=== PATIENT | female | born 1960 | race African-American/Black ===

== ENCOUNTER 2017-02-01 14:21 | Observation (INO) | payer OTHER ==
[2017-02-01 15:09] LABS: Hematocrit 37.3 % (36.0-47.0); Mean Platelet Volume 8.7 fL (7.4-10.4); Red Blood Cell (RBC) Count 5.01 mill/uL (4.20-5.40); White Blood Cell (WBC) Count 6.2 thou/uL (4.8-10.8)
[2017-02-01 15:24] LABS: ALT (SGPT) 47 U/L (8-55); AST (SGOT) 27 U/L (5-34); Alkaline Phosphatase 79 U/L (40-150); Anion Gap 8 mmol/L (10-20); BUN (Urea Nitrogen) 22 mg/dL (9.8-20.1); Bilirubin, Total 0.5 mg/dL (0.2-1.2); CK (CPK) 138 U/L (29-168); Calc. Creatinine Clearance 0 mL/min (70-130); Calcium 9.3 mg/dL (7.8-10.44); Carbon Dioxide 30 mmol/L (22-29); Chloride 103 mmol/L (98-107); Estimated GFR-MDRD 81; Globulin 3.4 g/dL (2.4-3.5); Protein, Total 7.4 g/dL (6.0-8.3)
[2017-02-01 15:31] LABS: #Lymphocytes 1.3 thou/uL (1.20-3.40); #Monocytes 0.3 thou/uL (0.11-0.59); #Neutrophils 4.6 thou/uL (1.40-6.50); %Basophils 0.2 % (0.0-1.0); %Eosinophils 0.4 % (0.0-10.0); %Lymphocytes 21.3 % (21.0-51.0); Anisocytosis SLIGHT = 6-15 cells (100X) (0-5/hpf); Hypochromia SLIGHT = 6-15 cells (100X) (0-5/hpf); Microcytosis SLIGHT = 6-15 cells (100X) (0-5/hpf); Ovalocytes SLIGHT = 2-5 cells (100X) (0-1/hpf)
[2017-02-01 15:35] LABS: Troponin I Less than 0.010 ng/mL (< 0.028)
--- NOTE | 2017-02-01 17:07 | RAD ---
PORTABLE CHEST 1 VIEW: Date: 02/01/17 Time: 1534 hours HISTORY: Mid sternal chest pain. FINDINGS/IMPRESSION: The heart size is normal. The lungs are well expanded without confluent areas of consolidation, pneu mothorax, or pleural effusions. There is mild prominence of the interstitial markings, particularly in the upper lung robbins. There are degenerative changes in the spine. POS: [facility]
[2017-02-01] MEDS ORDERED: Regadenoson 0.4 MG/5 ML SYRINGE ONE (17:12)
[2017-02-01] MEDS ORDERED: Nitroglycerin 2% Ointment 1 INCH/1 GM Packet ONE (17:57)
[2017-02-01 19:06] LABS: Troponin I Less than 0.010 ng/mL (< 0.028)
[2017-02-01] MEDS ORDERED: Acetaminophen 325 MG TAB PO PRN ×2 (20:24→22:21)
[2017-02-01] MEDS ORDERED: HYDROcodone/Acetaminophen 5/325 mg Tablet PO PRN ×2 (20:24)
[2017-02-01] MEDS ORDERED: Ondansetron HCl/PF 4 MG/2 ML Vial IVP PRN (20:24)
[2017-02-01] MEDS ORDERED: Ondansetron ODT 4 MG TAB SL PRN (20:24)
[2017-02-01 20:46] VITALS: BMI 27.1
[2017-02-01] MEDS ORDERED: FLU VACC QS2017-18 36 mo. & older 0.5 ML SYRINGE IM ONE (21:00)
[2017-02-01 21:05] LABS: Troponin I Less than 0.010 ng/mL (< 0.028)
[2017-02-01] MEDS ORDERED: Nitroglycerin 0.4 MG TAB (25 Tab Bottle) PO PRN (22:21)
[2017-02-01] MEDS ORDERED: diphenhydrAMINE 25 MG in Sodium Chloride 0.9% 50 ML IVPB PRN (22:42)
[2017-02-01] MEDS ORDERED: diphenhydrAMINE 50 MG/ML VIAL IVP PRN (22:53)
[2017-02-01] MEDS: Sodium Chloride 0.9% 1,000 ML IV SCH (23:51)
[2017-02-02] MEDS ORDERED: Temazepam 15 MG CAP PO PRN (00:33)
[2017-02-02] MEDS ORDERED: Melatonin 3 MG TAB PO PRN (00:33)
[2017-02-02] MEDS ORDERED: Nitroglycerin 2% Ointment 1 INCH/1 GM Packet TOP SCH (02:00)
[2017-02-02 04:44] LABS: #Eosinphils 0.1 thou/uL (0.0-0.7); #Lymphocytes 2.4 thou/uL (1.20-3.40); #Monocytes 0.5 thou/uL (0.11-0.59); #Neutrophils 3.3 thou/uL (1.40-6.50); %Basophils 0.5 % (0.0-1.0); %Eosinophils 1.6 % (0.0-10.0); %Lymphocytes 38.2 % (21.0-51.0); %Monocytes 7.2 % (0.0-10.0); Hematocrit 34.1 % (36.0-47.0); Mean Platelet Volume 8.3 fL (7.4-10.4); Red Blood Cell (RBC) Count 4.67 mill/uL (4.20-5.40); White Blood Cell (WBC) Count 6.3 thou/uL (4.8-10.8)
[2017-02-02 05:07] LABS: Anion Gap 8 mmol/L (10-20); BUN (Urea Nitrogen) 19 mg/dL (9.8-20.1); Calc. Creatinine Clearance 95 mL/min (70-130); Calcium 8.8 mg/dL (7.8-10.44); Carbon Dioxide 28 mmol/L (22-29); Chloride 106 mmol/L (98-107); Cholesterol 204 mg/dl (< 200 Desired); Estimated GFR-MDRD Greater than 90; LDL Cholesterol, Calculated 120 mg/dL; Magnesium 1.8 mg/dL (1.6-2.6); Phosphorus 2.9 mg/dL (2.3-4.7)
--- NOTE | 2017-02-02 06:53 | HP ---
DATE OF ADMISSION: 02/01/2017 ATTENDING: Gabriella Randhawa DO RESIDENT: DO Dr. Prince Michel's H and P reviewed and case discussed. Pertinent portions of the history and physical we re repeated by myself. I agree with the assessment and plan with the following addendum. Ms. Bhat is a pleasant 56-year-old -[place] female with past medical history of sarcoidosi s on chronic steroids, glaucoma, and hypertension, who presented to the ER with typical chest pain, concerning for exertional angina. During my examination, her chest pain had completely resolved, al though she did complain of a headache from her nitro-patch. This was mildly improved with Tylenol g iven her the resolution of her pain. We will discontinue the nitro-patch. She has had cardiac enzy mes that have been negative x3 and her EKG is unremarkable. Given her history of sarcoidosis with c hronic steroid use as well as hypertension and her concerning current pain, we will obtain a stress test for her in the morning to rule out acute coronary syndrome.
[2017-02-02] MEDS ORDERED: Aspirin 325 MG TAB PO SCH (08:00)
[2017-02-02] MEDS ORDERED: predniSONE 20 MG TAB PO SCH (08:00)
[2017-02-02] MEDS ORDERED: Hydrochlorothiazide 25 MG TAB PO SCH (09:00)
[2017-02-02] MEDS ORDERED: Timolol 0.5% Ophth Soln 5 ml Bottle R EYE SCH (09:00)
[2017-02-02] MEDS ORDERED: Latanoprost 0.005% Ophth Soln 2.5 ml Bottle R EYE SCH (09:00)
[2017-02-02] MEDS: Sodium Chloride 0.9% 1,000 ML IV SCH (09:11)
--- NOTE | 2017-02-02 09:32 | HP-2 ---
DATE OF ADMISSION: 02/01/2017 DATE OF SERVICE: 02/01/2017 LOCATION: [place], [place]. COSIGNER: Dr. Gabriella Randhawa. CODE STATUS: FULL. PRIMARY CARE PHYSICIAN: [facility]. ATTENDING PHYSICIAN: Dr. Gabriella Randhawa. RESIDENT PHYSICIAN: Dr. Duy Morrison. CHIEF COMPLAINT: Exertional chest pain with radiation to the left shoulder. HISTORY OF PRESENT ILLNESS: A 56-year-old female with past medical history of anemia, hypertension, and sarcoidosis, who presents to ED with a 2-day history of exertional chest pain, which she first noticed at work while not active. Patient reports the pain was persistent while at work, but resolv ed after rest. Patient experienced another episode of pressure-like discomfort after walking to [employer] this morning. She denies fever, chills, sweats, diaphoresis, nausea, vomiting, diarrhea, constipa tion, syncopal episodes. Denied increased shortness of breath outside of her baseline. Denied swel ling. Patient reported relief of symptoms with rest and nitro. ER: In the ER, the patient was given 324 mg of aspirin and nitropatch with relief of symptoms. PAST MEDICAL HISTORY: Anemia, sarcoidosis, and hypertension. PAST SURGICAL HISTORY: Transvaginal hysterectomy. ALLERGIES: PENICILLIN. MEDICATIONS: 1. Hydrochlorothiazide 50 mg every day. 2. Prednisone 20 mg daily. 3. Sertraline. 4. Timolol drops. FAMILY HISTORY: Maternal and paternal hypertension. SOCIAL HISTORY: Patient is a nonsmoker, nondrinker. Denies drug use. 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 ILL CONTACTS: The patient denies ill contacts. REVIEW OF SYSTEMS: General: The patient denies fever, chills, and night sweats. ENT: The patient denies nasal congestion, rhinorrhea, and sore throat. Respiratory: The patient denies cough, bina estion, shortness of breath. Cardiovascular: The patient complains of chest pain. Denies palpitat ions or edema. Gastrointestinal: The patient denies nausea, vomiting, diarrhea, constipation. Mus culoskeletal: The patient denies swelling. Neurologic: The patient denies syncopal episodes. PHYSICAL EXAMINATION: VITAL SIGNS: Blood pressure 149/85, pulse 66, respirations 16 breaths per minute, T-max 98.4, pulse ox 99% on room air, current weight 72 kilograms. GENERAL: The patient is alert and oriented, no acute distress, well-developed, well-nourished, and appropriately interactive. EYES: Pupils are equal, round, reactive to light. Extraocular muscles are intact. Conjunctiva wit hin normal limits. CARDIOVASCULAR: Regular rate and rhythm. No murmurs, rubs or gallops. Radial pulses 2+, pedal pul ses 2+. No hepatojugular reflux. No JVD. RESPIRATORY: Normal effort. Lungs clear to auscultation bilaterally. No retractions, no paradoxic al breathing. SKIN: Warm and dry. No cyanosis. No lesions. ABDOMEN: Soft, nontender, normoactive bowel sounds in all 4 quadrants. No masses or distention. EXTREMITIES: No clubbing, no cyanosis, no edema. MUSCULOSKELETAL: Structures within normal limits. Tone within normal limits. NEUROLOGIC: No focal deficits. GCS 15. LABORATORY DATA AND IMAGING: White blood cell count 6.2, hemoglobin 11.7, hematocrit 37.3, platelet s 277. Sodium 137, potassium 4.2, chloride 103, bicarbonate 30, BUN 22, creatinine 0.88, glucose 11 9, calcium 9.3, total protein 7.4, albumin 4.0, AST 27, ALT 47, alkaline phosphatase 79, total bilir ubin 0.4, CK 138, CK-MB 2, troponin less than 0.010. Lipase 17. EKG showed normal sinus rhythm wit h no ST or T-wave changes. Chest x-ray showed no acute cardiothoracic process. Lungs were hyperinf lated. ASSESSMENT AND PLAN: 1. Typical chest pain: We will admit for observation to telemetry. Repeat troponins x3, 325 mg of aspirin daily and p.r.n. nitro will be provided. Check a TSH, magnesium, phosphorus, and fasting l ipids in the morning. We will order cardiac echo. We will order stress test. Pending negative tro ponins. We will repeat EKG in the morning. The patient will be placed on normal saline at 100 mL p er hour and will be made n.p.o. with sips of water at midnight. 2. Hypertension. Resume home medications. 3. Sarcoidosis. We will resume home medications. Maintain oxygen saturation of 90%. 4. Anxiety. We will resume home medications. 5. Glaucoma. We will resume home medications. DISPOSITION AND LENGTH OF STAY: Patient is stable. Anticipated length of stay less than or equal t o 2 days. Symptomatic medication will be provided. History and physical exam as well as management was discussed with Dr. Gabriella Randhawa, who agrees wit h the assessment and plan unless otherwise noted in her addendum.
--- NOTE | 2017-02-02 10:14 | PDOC.FM ---
- Subjective Subjective: Patient reports complete resolution of her chest pain. She has had no further episodes of chest pain since last night. Denies any SOB, diaphoresis, nausea, vomiting, fever. - Objective MAR Reviewed: Yes Vital Signs & Weight: Vital Signs (12 hours) Temp Pulse Resp BP Pulse Ox 02/02/17 08:00 98.6 F 74 16 02/02/17 07:48 98.6 F 74 16 123/62 97 02/01/17 23:23 97.7 F 72 20 123/63 95 Weight Weight 71.713 kg Result Diagrams: 02/02/17 04:28 02/02/17 04:28 <Jenifer Monae - Last Filed: 02/02/17 10:12> - Objective Vital Signs & Weight: Vital Signs (12 hours) Temp Pulse Resp BP Pulse Ox 02/02/17 10:38 97.9 F 70 24 H 131/74 98 02/02/17 08:00 98.6 F 74 16 02/02/17 07:48 98.6 F 74 16 123/62 97 Weight Weight 71.713 kg Result Diagrams: 02/02/17 04:28 02/02/17 04:28 <Abeba Levin - Last Filed: 02/02/17 12:58> Phys Exam - Physical Examination Constitutional: NAD HEENT: moist MMs Respiratory: no wheezing, no rales, no rhonchi, clear to auscultation bilateral Cardiovascular: RRR, no significant murmur, no rub, gallop Gastrointestinal: soft, non-tender, no distention, positive bowel sounds Musculoskeletal: no edema, pulses present Neurological: non-focal, moves all 4 limbs Psychiatric: normal affect, A&O x 3 <Jenifer Monae - Last Filed: 02/02/17 10:12> Dx/Plan (1) Atypical chest pain Code(s): R07.89 - OTHER CHEST PAIN Status: Acute Plan: The patient had atypical chest pain. She has an ASCVD 10 year risk of 4.5%. She is not on a statin, does not have DM and is not a smoker. It is unlikely that she has CAD. -Stress test this AM -Echo -Nitro prn -Aspirin -d/c today if stress test is normal (2) Sarcoidosis Code(s): D86.9 - SARCOIDOSIS, UNSPECIFIED Status: Acute Plan: Pt has recent diagnosis of sarcoidosis currently on prednisone -continue home medications (3) Microcytic anemia Code(s): D50.9 - IRON DEFICIENCY ANEMIA, UNSPECIFIED Status: Acute Plan: Pt has microcytic anemia, stable and chronic -Will have pt follow-up outpatient for this (4) Hypertension Code(s): I10 - ESSENTIAL (PRIMARY) HYPERTENSION Status: Acute Qualifiers: Hypertension type: essential hypertension Qualified Code(s): I10 - Essential (primary) hypertension Plan: BP has been well controlled since admission -Continue home HCTZ <Jenifer Monae - Last Filed: 02/02/17 10:12> Attending Addendum - Attending Addendum I personally evaluated the patient and discussed the management with Dr. Monae. I agree with the History, Examination, Assessment and Plan documented above with any addition or exceptions noted below. The patient is feeling much better today. She is scheduled for a stress test and if negative will likely discharge home. <Abeba Levin - Last Filed: 02/02/17 12:58>
[2017-02-02 15:04] VITALS: BP 134/66; TEMP 98.4
--- NOTE | 2017-02-02 15:28 | EKG ---
Test Reason : Blood Pressure : / mmHG Vent. Rate : 065 BPM Atrial Rate : 065 BPM P-R Int : 150 ms QRS Dur : 104 ms QT Int : 436 ms P-R-T Axes : 066 045 040 degrees QTc Int : 453 ms Normal sinus rhythm Normal ECG When compared with ECG of 01-FEB-2017 14:29, (Unconfirmed) No significant change was found Confirmed by DR. Stan ARRIETA ([id number]) on 02/02/2017 3:27:49 PM Referred By: DARA Confirmed By:DR. Stan ARRIETA
--- NOTE | 2017-02-02 16:21 | NM ---
CARDIAC SPECT: 02/02/17 HISTORY: 56-year-old female with chest pain, hypertension. TECHNIQUE: A myocardial perfusion scan was performed using the single isotope one day protocol with technetium 99m Sestamibi. 9 millicuries was injected intravenously for the rest exam followed by 27 millicuries for the stress study. Pharmacologic stress with Lexiscan was monitored and interpreted by Dr. Abraham hernandes FINDINGS: Homogeneous tracer distribution is seen in the myocardial segments on stress and rest images without fixed or reversible defects. GATED SPECT LVEF: 63%. WALL MOTION EXAM: Normal. IMPRESSION: Normal myocardial perfusion scan. POS: [facility]
--- NOTE | 2017-02-02 21:00 | DIS-2 ---
DATE OF ADMISSION: 02/01/2017 DATE OF DISCHARGE: 02/02/2017 ADMITTING RESIDENT. Duy Morrison DO DISCHARGE RESIDENT: Jenifer Monae MD ADMITTING ATTENDING: Gabriella Randhawa D.O. DISCHARGE ATTENDING: Abeba Levin M.D. CONSULTATIONS: None. PROCEDURES: Nuclear stress test that was normal. PRIMARY DIAGNOSES: 1. Atypical chest pain, likely secondary to sarcoidosis. 2. Microcytic anemia. 3. Sarcoidosis. SECONDARY DIAGNOSIS: Hypertension. DISCHARGE MEDICATIONS: 1. Aspirin 81 mg p.o. daily. 2. Hydrochlorothiazide 50 mg 1 tab p.o. daily. 3. Latanoprost 2.5 mL 1 drop in each eye p.o. daily. 4. Sertraline 100 mg p.o. daily. 5. Timolol 15 mL 1 drop b.i.d. in both eyes. 6. Prednisone 10 mg p.o. daily. DISCONTINUED MEDICATIONS: None. HISTORY OF PRESENT ILLNESS AND HOSPITAL COURSE: This is a 56-year-old female with a past medical hi story of sarcoidosis and hypertension, who presented to the ER with chest pain associated with short ness of breath that had been more severe was at work and resolved after rest. She never has any kaelyn st pain like this before. Patient received aspirin and nitro in the ED. Her chest pain resolved, a t that point had not returned. She had negative troponins x3. Her EKG showed no ischemic changes. Her total cholesterol was found to be mildly elevated at 204, but her other lipids were within norm al limits with an HDL of 68. Her TSH was found to be low at 0.0213, however, her free T4 was normal at 0.79. Her hemoglobin was low at 11.7 with an MCV of 74.5. The patient had normal blood pressur es throughout her admission with the exception of one elevated blood pressure initially at 154/75 an d the rest of her vital signs are within normal limits. She received a nuclear stress test and had normal results. No signs of ischemia. The patient also got an echocardiogram done with the results of pending for the patient that I will be able to notify her within a few days of the result and sh e was amenable to this plan. The patient had no return of symptoms throughout her admission and to be followed up as an outpatient. She was started on aspirin, but her ASCVD risk calculator showed a risk of only 4.5%. She said she was not started on a statin at this time; however, would be nino f or this to be followed in the future as this may increase, she may need to be started on a statin at some point in the future. DISPOSITION: Stable. DISCHARGE INSTRUCTIONS: 1. Location: Home. 2. Diet: Heart healthy. 3. Activity: No restrictions. 4. Follow up with Dr. Rojas within 2 weeks.
--- NOTE | 2017-02-02 21:55 | ADD-PRG ---
ADDENDUM: 02/02/2017 The patient had an echocardiogram done that was read by Dr. Jim, but I am not sure it has been sign ed by her. The ejection fraction was 60-65%, grade I diastolic dysfunction with mild left atrial en largement and left ventricle is normal. The patient will be discharged on a beta ele and follow up with Dr. Jim.
== END 2017-02-02 16:35 | disposition home or self-care (01) ==
LOC: ERS 14:21 → 2SW 17:30
PROVIDERS: ADMIT Family Medicine; ATTEND Family Medicine
DX: R07.89 Other chest pain (principal); D86.9 Sarcoidosis, unspecified; I10 Essential (primary) hypertension; F41.9 Anxiety disorder, unspecified; D50.9 Iron deficiency anemia, unspecified; H40.9 Unspecified glaucoma; Z79.82 Long term (current) use of aspirin; Z79.52 Long term (current) use of systemic steroids; Z79.899 Other long term (current) drug therapy; Z88.0 Allergy status to penicillin; Z90.710 Acquired absence of both cervix and uterus
CPT/HCPCS: 36415; 36416; 71010; 78452; 80048; 80053; 80061; 82553; 83690; 83735; 84100; 84439; 84443; 84484; 85025; 90471; 90682; 90732; 93005; 93010; 93017; 93306; 94760; 96361; 96374; A9500; G0008; G0009; G0378; J1200; J2785; J7506; Q2036

== ENCOUNTER 2018-01-01 14:28 | Outpatient (CLI) | payer OTHER ==
--- NOTE | 2018-01-01 16:16 | RAD ---
CHEST TWO VIEWS: History: Dyspnea. Comparison: 02-01-17 FINDINGS: Normal cardiac silhouette. The pulmonary vessels and hilum are normal. Costophrenic angles are clear. Chronic changes of the lung parenchyma, without consolidation or mass. No pneumothorax or osseous ab normalities. IMPRESSION: No acute cardiopulmonary process. POS: [facility]
== END 2018-01-01 14:29 | disposition home or self-care (01) ==
LOC: RAD 14:28
PROVIDERS: ATTEND Internal Medicine Pulmonary Disease
DX: R06.00 Dyspnea, unspecified (principal)
CPT/HCPCS: 71046

== ENCOUNTER 2018-07-24 11:33 | Outpatient (CLI) | payer OTHER ==
--- NOTE | 2018-07-24 12:02 | MMO ---
Bilateral MAMMO Bilat Screen [facility]. CLINICAL HISTORY: Patient is 57 years old and is seen for screening. The patient has the following family history of breast cancer: sister, at age 35, . The patient has no personal history of cancer. The patient has a history of right Stereotatic Biopsy in June, - benign. VIEWS: The views performed were: bilateral craniocaudal with tomosynthesis; bilateral mediolateral oblique with tomosynthesis; and left mediolateral oblique. FILMS COMPARED: The present examination has been compared to prior imaging studies performed at [facility] on 07/09/2009, 05/22/2012, 06/19/2013, 08/07/2014 and 09/17/2015, and at [facility] on 06/20/2002. MAMMOGRAM FINDINGS: There are scattered fibroglandular densities. There is a stable biopsy clip seen in the right breast. There are no suspicious masses, suspicious calcifications, or new areas of architectural distortion. IMPRESSION: THERE IS NO MAMMOGRAPHIC EVIDENCE OF MALIGNANCY. A ROUTINE FOLLOW-UP MAMMOGRAM IN 1 YEAR IS RECOMMENDED. THE RESULTS OF THIS EXAM WERE SENT TO THE PATIENT. ACR BI-RADS Category 2 - Benign finding MAMMOGRAPHY NOTE: 1. A negative mammogram report should not delay a biopsy if a dominant of clinically suspicious mass is present. 2. Approximately 10% to 15% of breast cancers are not detected by mammography. 3. Adenosis and dense breasts may obscure an underlying neoplasm.
== END 2018-07-24 11:34 | disposition home or self-care (01) ==
LOC: BICMAMMO 11:33
PROVIDERS: ATTEND Family Medicine
DX: Z12.31 Encounter for screening mammogram for malignant neoplasm of breast (principal); Z80.3 Family history of malignant neoplasm of breast
CPT/HCPCS: 77063; 77067

== ENCOUNTER 2019-01-16 14:30 | Outpatient (CLI) | payer OTHER ==
--- NOTE | 2019-01-16 16:34 | RAD ---
PA AND LATERAL CHEST: Date: 01/16/19 HISTORY: Dyspnea. COMPARISON: 01/01/18 chest x-ray and a 2017 CT examination. FINDINGS: The reticulonodular opacities in both upper lobes persist. Heart size and mediastinal structures are unremarkable. There is degenerative change of the spine. IMPRESSION: Stable appearance to the reticulonodular opacities, which are upper lobe predominant. Changes would b e suggestive of an entity such as sarcoid. POS: [facility]
== END 2019-01-16 14:31 | disposition home or self-care (01) ==
LOC: RAD 14:30
PROVIDERS: ATTEND Internal Medicine Pulmonary Disease
DX: R06.00 Dyspnea, unspecified (principal); R91.8 Other nonspecific abnormal finding of lung field
CPT/HCPCS: 71046

== ENCOUNTER 2019-04-21 15:03 | Emergency (ER) | payer OTHER ==
[2019-04-21 16:09] LABS: #Eosinphils 0.1 thou/uL (0.0-0.7); #Lymphocytes 1.3 thou/uL (1.20-3.40); #Monocytes 0.5 thou/uL (0.11-0.59); #Neutrophils 3.7 thou/uL (1.40-6.50); %Basophils 0.8 % (0.0-1.0); %Eosinophils 1.7 % (0.0-10.0); %Lymphocytes 23.7 % (21.0-51.0); %Monocytes 9.1 % (0.0-10.0); %Neutrophils 64.7 % (42.0-75.0); Hemoglobin 10.8 g/dL (12.0-16.0); Mean Corpuscular HGB CONC 31.7 g/dL (32.0-36.0); Mean Corpuscular Hemoglobin 22.7 pg (27.0-31.0); Mean Corpuscular Volume 71.5 fL (78.0-98.0); Mean Platelet Volume 8.5 fL (7.4-10.4); Platelet Count 275 thou/uL (130-400); RBC Distribution Width 14.1 % (11.5-14.5); Red Blood Cell (RBC) Count 4.75 mill/uL (4.20-5.40); White Blood Cell (WBC) Count 5.7 thou/uL (4.8-10.8)
[2019-04-21 16:32] LABS: ALT (SGPT) 79 U/L (8-55); AST (SGOT) 184 U/L (5-34); Alkaline Phosphatase 184 U/L (40-110); Anion Gap 12 mmol/L (10-20); BUN (Urea Nitrogen) 23 mg/dL (9.8-20.1); Bilirubin, Total 0.5 mg/dL (0.2-1.2); Calc. Creatinine Clearance 0 mL/min (70-130); Calcium 9.1 mg/dL (7.8-10.44); Carbon Dioxide 29 mmol/L (22-29); Chloride 99 mmol/L (98-107); Estimated GFR-MDRD 71; Globulin 3.6 g/dL (2.4-3.5); Glucose 84 mg/dL (70-105); Lipase 34 U/L (8-78); Potassium 3.6 mmol/L (3.5-5.1); Protein, Total 7.6 g/dL (6.0-8.3); Sodium 136 mmol/L (136-145)
[2019-04-21 16:37] LABS: Hypochromia SLIGHT = 6-15 cells (100X) (0-5/hpf); MDiff Complete? YES; Microcytosis SLIGHT = 6-15 cells (100X) (0-5/hpf); Ovalocytes SLIGHT = 2-5 cells (100X) (0-1/hpf); Platelet Morphology Comment Appears Adequate; Poikilocytosis SLIGHT = 6-15 cells (100X) (0-5/hpf); Polychromasia SLIGHT = 2-3 cells (100X) (0-2/hpf); Schistocytes SLIGHT = 2-5 cells (100X) (0-1/hpf); Tear Drops SLIGHT = 2-5 cells (100X) (0-1/hpf)
--- NOTE | 2019-04-21 17:10 | ULT ---
EXAM: US Gallbladder RUQ CLINICAL HISTORY: Abdominal pain. COMPARISON: None. FINDINGS: Pancreas: The head and proximal pancreatic body have a normal echotexture. The remainder the pancrea s is obscured by bowel gas Liver:Normal hepatic parenchymal echotexture. No hepatic masses or intrahepatic biliary dilatation. T he contour of the hepatic margins maintained. Right hepatic lobe measures 14 cm Gallbladder: Increased echogenicity in the gallbladder fossa with shadowing. Findings may represent a gallbladder that is significantly filled with stones. Correlation made with a 2 view chest radiograph from 01/16/2019 does not demonstrate surgical clips in the right upper quadrant. Correlate clinically for possible previous cholecystectomy. Calvert's sign:Negative Portal Vein: Patent. Appropriate directional flow Bile ducts: Dilated measuring 1 cm diameter Right kidney: No hydronephrosis. Right kidney measures 4.5 x 9.4 x 6.0 cm in length. IMPRESSION: 1. Sonographic evidence suggesting gallbladder that is significantly filled with stones with resultan t "wall echo shadow sign". Negative Calvert's sign. There is dilatation of the common bile duct. Further evaluation with HIDA scan may be beneficial Transcribed Date/Time: 04/21/2019 7:10 PM
[2019-04-21 17:14] LABS: Bilirubin Negative (Negative); Blood, Urine Negative (Negative); Clarity Clear (Clear); Glucose, Urine (Dipstick) Normal (Negative); Leukocyte Negative Leu/uL (Negative); Nitrite Negative (Negative); Protein, Urine (Dipstick) Negative (Neg-Trace); Urobilinogen Normal mg/dL (Less than 2)
== END 2019-04-21 17:52 | disposition home or self-care (01) ==
LOC: ERS 15:03
DX: K80.20 Calculus of gallbladder without cholecystitis without obstruction (principal); F41.9 Anxiety disorder, unspecified; F32.9 Major depressive disorder, single episode, unspecified; Z79.899 Other long term (current) drug therapy
CPT/HCPCS: 36415; 76705; 80053; 81003; 83690; 85025

== ENCOUNTER 2019-04-22 14:44 | Outpatient (CLI) | payer OTHER ==
[2019-04-22 17:22] LABS: #Basophils 0.1 thou/uL (0.0-0.2); #Eosinphils 0.1 thou/uL (0.0-0.7); #Lymphocytes 1.9 thou/uL (1.20-3.40); #Monocytes 0.4 thou/uL (0.11-0.59); #Neutrophils 1.7 thou/uL (1.40-6.50); %Basophils 1.6 % (0.0-1.0); %Eosinophils 3.3 % (0.0-10.0); %Lymphocytes 44.9 % (21.0-51.0); %Neutrophils 41.2 % (42.0-75.0); Hemoglobin 10.7 g/dL (12.0-16.0); Mean Corpuscular HGB CONC 31.9 g/dL (32.0-36.0); Mean Corpuscular Hemoglobin 22.7 pg (27.0-31.0); Mean Corpuscular Volume 71.2 fL (78.0-98.0); Mean Platelet Volume 9.4 fL (7.4-10.4); Platelet Count 266 thou/uL (130-400); Red Blood Cell (RBC) Count 4.71 mill/uL (4.20-5.40); White Blood Cell (WBC) Count 4.2 thou/uL (4.8-10.8)
[2019-04-22 17:48] LABS: ALT (SGPT) 58 U/L (8-55); AST (SGOT) 42 U/L (5-34); Alkaline Phosphatase 159 U/L (40-110); Anion Gap 13 mmol/L (10-20); BUN (Urea Nitrogen) 21 mg/dL (9.8-20.1); Bilirubin, Direct 0.1 mg/dL (0.1-0.3); Bilirubin, Total 0.3 mg/dL (0.2-1.2); Calc. Creatinine Clearance 0 mL/min (70-130); Calcium 8.9 mg/dL (7.8-10.44); Carbon Dioxide 29 mmol/L (22-29); Chloride 100 mmol/L (98-107); Estimated GFR-MDRD 75; Glucose 72 mg/dL (70-105); Potassium 3.7 mmol/L (3.5-5.1); Protein, Total 7.5 g/dL (6.0-8.3); Sodium 138 mmol/L (136-145)
== END 2019-04-22 14:45 | disposition home or self-care (01) ==
LOC: LABBT 14:44
PROVIDERS: ATTEND Surgery
DX: Z01.818 Encounter for other preprocedural examination (principal); K80.20 Calculus of gallbladder without cholecystitis without obstruction
CPT/HCPCS: 80048; 80076; 85025; 93005; 93010

== ENCOUNTER 2019-04-25 11:18 | Day surgery (SDC) | payer OTHER ==
[2019-04-22 15:15] VITALS: BMI 22.9
[2019-04-25] MEDS ORDERED: ceFOXitin 2 GM/50 ML Duplex BAG ONE (12:43)
[2019-04-25] MEDS ORDERED: PROPOFOL 200 MG/20 ML VIAL ONE (12:48)
[2019-04-25] MEDS ORDERED: Ondansetron PF 4 MG/2 ML Vial ONE (12:48)
[2019-04-25] MEDS ORDERED: PHENYLEPHRINE-NS 100 MCG/ML 10 ML SYRINGE ONE (12:48)
[2019-04-25] MEDS ORDERED: Glycopyrrolate 0.2 MG/ML 5 ML SYRINGE ONE (12:48)
[2019-04-25] MEDS ORDERED: Lidocaine 1% PF 5 ML VIAL ONE (12:48)
[2019-04-25] MEDS ORDERED: ePHEDrine/0.9% NaCl/PF SYRINGE 50 mg/10 ml ONE (12:48)
[2019-04-25] MEDS ORDERED: Rocuronium Bromide 10 MG/ML (10ML VIAL) ONE (12:48)
[2019-04-25] MEDS ORDERED: Dexamethasone 20 MG/5 ML VIAL ONE (12:48)
[2019-04-25] MEDS ORDERED: Iothalamate Meglumine 60% 50 ML VIAL FS ONE (13:03)
[2019-04-25] MEDS ORDERED: Lidocaine 1% w/Epinephrine 1:100K 20 ML VIAL ONE (13:03)
[2019-04-25] MEDS ORDERED: Bupivacaine PF 0.5% 30 ML VIAL ONE (13:03)
[2019-04-25] MEDS ORDERED: Fentanyl 250 MCG/5 ML VIAL ONE (13:09)
--- NOTE | 2019-04-25 14:39 | RAD ---
XR Cholangiogram in Surgery HISTORY: Cholelithiasis COMPARISON: None. FINDINGS: There are changes of cholecystectomy. There is opacification of the main hepatic ducts and some of t he right-sided branches, cystic duct remnant and common bile duct without defects. There is contrast in the second portion of the duodenum. Surgical instruments are in the [id number].
[2019-04-25] MEDS ORDERED: Fentanyl 100 MCG/2 ML VIAL ONE (14:48)
--- NOTE | 2019-04-25 20:49 | OP ---
DATE OF PROCEDURE: 04/25/2019 PREOPERATIVE DIAGNOSES: Symptomatic gallstones with elevated liver tests. POSTOPERATIVE DIAGNOSIS: Symptomatic gallstones with elevated liver tests. PROCEDURES PERFORMED: Laparoscopic cholecystectomy with intraoperative cholangiogram. ANESTHESIA: General. ESTIMATED BLOOD LOSS: Minimal. COMPLICATIONS: None. SPECIMEN: Gallbladder. FINDINGS: Normal cholangiogram. There is a dilated common bile duct, but no distal obstruction. DESCRIPTION OF PROCEDURE: The patient was taken to the operating room and laid supine on the operating room table. After general anesthetic was obtained, the abdomen was prepped and draped in a sterile fashion. A curved incision was made below the umbilicus, cautery dissected down to the fascia. There was an umbilical hernia. The 12 mm balloon trocar was placed. The balloon was inflated. High-flow pneumoperitoneum was obtained. Three right upper quadrant 5 mm ports were placed. The peritoneum of the gallbladder was opened anteriorly and posteriorly. The critical view of triangle was seen showing only the cystic duct and cystic artery branching medial to lateral. No other branching structures. A clip was placed on the cystic duct. A small ductotomy was made just proximal to that. A cholangiocatheter was brought in through a separate stab incision and a cholangiogram was performed, which showed good contrast flow into the duodenum without obstruction. There was a dilation of the common bile duct, but no obstruction. Two clips were placed proximally on the cystic duct and it was cut using laparoscopic scissors. Cystic artery was taken 2 clips proximally, 1 clip distally, cut using laparoscopic scissors. Cautery was used to dissect the gallbladder out of the gallbladder fossa. Gallbladder was placed in EndoCatch bag and brought out through the Teo. All port sites were infiltrated using local anesthetic. All ports were removed under camera visualization. Pneumoperitoneum was let down. Interrupted PDS suture was used to close the fascial defect at the umbilicus. The umbilical stalk was tacked back down using Vicryl. Incisions were all closed using 4-0 Monocryl and Dermabond. The patient was sent to Recovery in stable condition. All instrument counts, needle counts, and lap counts were correct. Job ID: [id number]
== END 2019-04-25 16:20 | disposition home or self-care (01) ==
LOC: SDC 11:18
PROVIDERS: ATTEND Surgery
DX: K80.10 Calculus of gallbladder with chronic cholecystitis without obstruction (principal); R79.89 Other specified abnormal findings of blood chemistry; Z79.899 Other long term (current) drug therapy; Z88.0 Allergy status to penicillin
CPT/HCPCS: 47532; 88304; J0694; J1100; J1610; J2001; J2405; J2704; J3010; S0020

== ENCOUNTER 2019-09-24 11:42 | Outpatient (CLI) | payer OTHER ==
--- NOTE | 2019-09-24 14:48 | MMO ---
Bilateral MAMMO Bilat Screen [facility]. CLINICAL HISTORY: Patient is 58 years old and is seen for screening. The patient has the following family history of breast cancer: sister, at age 35, . The patient has no personal history of cancer. The patient has a history of right Stereotatic Biopsy in June, - benign. VIEWS: The views performed were: bilateral craniocaudal with tomosynthesis and bilateral mediolateral oblique with tomosynthesis. FILMS COMPARED: The present examination has been compared to prior imaging studies performed at [facility] on 06/19/2013, 08/07/2014, 09/17/2015 and 07/24/2018. This study has been interpreted with the assistance of computer-aided detection. MAMMOGRAM FINDINGS: There are scattered fibroglandular densities. Right biopsy clip. There are no suspicious masses, suspicious calcifications, or new areas of architectural distortion. IMPRESSION: THERE IS NO MAMMOGRAPHIC EVIDENCE OF MALIGNANCY. A ROUTINE FOLLOW-UP MAMMOGRAM IN 1 YEAR IS RECOMMENDED. THE RESULTS OF THIS EXAM WERE SENT TO THE PATIENT. ACR BI-RADS Category 2 - Benign finding MAMMOGRAPHY NOTE: 1. A negative mammogram report should not delay a biopsy if a dominant of clinically suspicious mass is present. 2. Approximately 10% to 15% of breast cancers are not detected by mammography. 3. Adenosis and dense breasts may obscure an underlying neoplasm. Reported by: MICH STOCKTON MD Electonically Signed: [id number]
== END 2019-09-24 11:43 | disposition home or self-care (01) ==
LOC: BICMAMMO 11:42
PROVIDERS: ATTEND Family Medicine
DX: Z12.31 Encounter for screening mammogram for malignant neoplasm of breast (principal); Z80.3 Family history of malignant neoplasm of breast; Z91.89 Other specified personal risk factors, not elsewhere classified
CPT/HCPCS: 77063; 77067

== ENCOUNTER 2022-02-16 14:25 | Outpatient (CLI) | payer BC | END 2022-02-16 14:26 | disposition home or self-care (01) | LOC: RAD 14:25 | PROVIDERS: ATTEND Internal Medicine Critical Care Medicine | DX: R06.09 Other forms of dyspnea (principal) | CPT/HCPCS: 71046 ==

== ENCOUNTER 2023-02-15 08:54 | Outpatient (CLI) | payer BC, OTHER | END 2023-02-15 08:55 | disposition home or self-care (01) | LOC: BICRAD 08:54 | PROVIDERS: ATTEND Internal Medicine Critical Care Medicine | DX: R06.00 Dyspnea, unspecified (principal); R91.8 Other nonspecific abnormal finding of lung field | CPT/HCPCS: 71046 ==

== ENCOUNTER 2023-10-26 13:30 | Outpatient (CLI) | payer BC | END 2023-10-26 13:31 | disposition home or self-care (01) | LOC: BICMAMMO 13:30 | PROVIDERS: ATTEND Family Medicine | DX: Z12.31 Encounter for screening mammogram for malignant neoplasm of breast (principal); M85.89 Other specified disorders of bone density and structure, multiple sites; Z80.3 Family history of malignant neoplasm of breast; Z91.89 Other specified personal risk factors, not elsewhere classified | CPT/HCPCS: 77063; 77067; 77080 ==